=== PATIENT | female | born 1955 | race Caucasian/White ===

== ENCOUNTER 2025-01-27 06:07 | Day surgery (SDC) | payer MEDICARE ==
[2025-01-25 18:10] VITALS: BMI 32.9
[~2025-01-27 06:07] MED LIST: SODIUM CHLORIDE 0.9% 1,000 ML IV SCH
[2025-01-27] MEDS: SODIUM CHLORIDE 0.9% 500 ML 500 ML IV ONE (06:55)
[2025-01-27 07:25] VITALS: TEMP 98
[2025-01-27] MEDS: BENZOCAINE SPRAY 1 EACH MUCOUS MEM STA (07:28)
[2025-01-27] MEDS ORDERED: LIDOCAINE 2% (PF) 20 MG/ML 5 ML VIAL ONE (07:37)
[2025-01-27] MEDS ORDERED: PROPOFOL 10 MG/ML 20 ML VIAL IV ONE (07:37)
[2025-01-27] MEDS: IV FLUID CONTINUATION 1,000 ML IV ONE ×2 (08:40→08:53)
[2025-01-27 08:53] VITALS: BP 130/83; PULSE 60; RESP 16
--- NOTE | 2025-01-27 16:43 | P.TEE ---
Date of Procedure: 01/27/25 Description of Procedure(s): Procedure performed: 1. Transesophageal Echocardiogram. 2. Synchronized Cardioversion. Indications: Persistent atrial fibrillation Consent: I have discussed the risks, benefits and alternative therapies for the above-mentioned procedure. The patient has indicated understanding and acceptance of the risks of the procedure. Signed consent was obtained and was placed in the paper chart. Moderate conscious sedation: Moderate conscious sedation was administered by anesthesia, see separate report. Procedural Steps: Timeout was performed in usual fashion. Patient's heart rate, blood pressure, oxygen saturation and ECG were monitored. After achieving appropriate moderate conscious sedation, FABIOLA FABIOLA probe was advanced without difficulty and without any immediate complications to the esophagus. FABIOLA study was performed with color flow doppler, pulsed wave doppler and continuous wave doppler. Agitated saline bubbles were injected to assess for any intra-atrial shunt. The probe was then removed. SYNCHRONIZED CARDIOVERSION After making sure that there is no evidence of intracardiac thrombus, pacer pads were placed and secured on patients chest and back. Synchronized cardioversion was perfromed using 200 J. [1] attempt. Sinus rhythm was confirmed with a 12 lead EKG. Patient tolerated the procedure well. Patient was transferred to the post procedure area in stable and satisfactory condition. Complications: none Blood loss: none FINDINGS Left Atrium: Moderate left atrial dilatation, no evidence of mass or thrombus Left Atrial Appendage: No evidence of thrombus or mass seen in EVELYN. Flow Doppler velocities Inter atrial septum: Intact inter-atrial septum. No evidence of atrial septal defect or patent foramen ovale on color doppler. Left Ventricle: Normal global LV size and systolic function Right Atrium: Normal overall RA size Right Ventricle: Normal global RV size and systolic function Aortic Valve: Structurally normal Trileaflet, no significant calcification. No significant stenosis or regurgitation on color doppler assessment. Mitral Valve: Struturally normal. Moderate mitral regurgitation. Pulmonic Valve: Not well visualized. Tricuspid Valve: Structurally normal. Ascending aorta, Aortic root and Aortic arch: Mild intimal thickening. Descending aorta: Mild intimal thickening. No pericardial effusion CONCLUSION: No thrombus in left atrium or EVELYN. Moderate LA dilatation Normal global LV size and systolic function Moderate mitral regurgitation Successful cardioversion 1 attempt 200 J Dewayne Neri MD, RPVI, FACC Thank you for allowing [facility] to participate in this patient's care. Feel free to reach out in case of any followup questions.
== END 2025-01-27 09:12 | disposition home or self-care (01) ==
LOC: OR 06:07
PROVIDERS: ATTEND Student in an Organized Health Care Education/Training Program
DX: I48.19 Other persistent atrial fibrillation (principal); I34.0 Nonrheumatic mitral (valve) insufficiency; I10 Essential (primary) hypertension; E66.01 Morbid (severe) obesity due to excess calories; M48.061 Spinal stenosis, lumbar region without neurogenic claudication; Z68.33 Body mass index [BMI] 33.0-33.9, adult; Z87.891 Personal history of nicotine dependence; Z88.1 Allergy status to other antibiotic agents; Z88.2 Allergy status to sulfonamides; Z79.899 Other long term (current) drug therapy
CPT/HCPCS: 93312; 93320; 93325; 92960; J2704; J2003